=== PATIENT | female | born 1955 | race Caucasian/White ===

== ENCOUNTER 2018-01-04 12:21 | Emergency (ER) | payer OTHER ==
[~2018-01-04] VITALS: Ht 160 cm; Wt 66.7 kg
[2018-01-04 12:32] VITALS: Ht 160 cm; Wt 66.7 kg
[2018-01-04 14:26] VITALS: BP 124/95
== END 2018-01-04 14:26 | disposition home or self-care (01) ==
LOC: ED 12:21
DX: S81.011A Laceration without foreign body, right knee, initial encounter (principal); E78.00 Pure hypercholesterolemia, unspecified; X58.XXXA Exposure to other specified factors, initial encounter; Y93.89 Activity, other specified; Y92.89 Other specified places as the place of occurrence of the external cause; Y99.8 Other external cause status
CPT/HCPCS: 90715; Q0092